=== PATIENT | male | born 1930 ===

== ENCOUNTER 2019-08-25 18:06 | Emergency (ER) | payer MEDICARE, OTHER ==
[2019-08-25] MEDS ORDERED: LIDOCAINE UROJECT 10 ML APPL MM ONE (18:26)
--- NOTE | 2019-08-25 18:52 | Emergency Department Record ---
History of Present Illness - General Chief complaint: Male Urogenital Problem Stated complaint: NEEDS CATH REPLACED Time Seen by Provider: 08/25/19 18:34 Source: Patient, Family Mode of Arrival: Wheelchair Limitations: No limitations - History of Present Illness Initial comments: pt had a herrera placed 2 days ago at [facility] for urinary retention. today it fell out while he was in the shower. he has an appt with dr parisi tomorrow Complaint: Other -: Hour(s) Indwelling catheter Reports: Urinary retention - Related Data Home Medications Medication Instructions Recorded Confirmed Last Taken Allopurinol 100 mg PO DAILY 08/25/19 08/25/19 Unknown Aspirin Chewable 81 mg PO DAILY 08/25/19 08/25/19 Unknown Carbidopa/Levodopa [Carbidopa-Levo 1 each PO ASDIR 08/25/19 08/25/19 Unknown 25-250 mg Odt] Carbidopa/Levodopa/Entacapone 1 each PO ASDIR 08/25/19 08/25/19 Unknown [Jkykuocpp-Ktxcobul-Nfbp 200 mg] Cyanocobalamin (Vitamin B-12) 5,000 mcg PO DAILY 08/25/19 08/25/19 Unknown [B-12 Dual Spectrum] Diclofenac Sodium/Misoprostol 1 tab PO DAILY 08/25/19 08/25/19 Unknown [Diclofenac-Misoprost 75-200 Tb] Latanoprost/Pf [Latanoprost 0.005% 7.5 ml OP QHS 08/25/19 08/25/19 Unknown Eye Drop] Omeprazole [Prilosec] 20 mg PO DAILY 08/25/19 08/25/19 Unknown Allergies Allergy/AdvReac Type Severity Reaction Status Date / Time No Known Drug Allergies Allergy Verified 08/25/19 18:15 Travel Screening - Travel/Exposure Within Last 30 Days Have you traveled within the last 30 days?: No Review of Systems Reviewed: No additional complaints except as noted below Constitutional: Reports: As per HPI. Denies: Chills, Fever, Malaise, Night sweats, Weakness, Weight change Eyes: Reports: As per HPI. Denies: Eye discharge, Eye pain, Photophobia, Vision change ENT: Reports: As per HPI. Denies: Congestion, Dental pain, Ear pain, Epistaxis, Hearing loss, Throat pain Respiratory: Reports: As per HPI. Denies: Cough, Dyspnea, Hemoptysis, Stridor, Wheezes Cardiovascular: Reports: As per HPI. Denies: Arrhythmia, Chest pain, Dyspnea on exertion, Edema, Murmurs, Orthopnea, Palpitations, Paroxysmal nocturnal dyspnea, Rheumatic Fever, Syncope Endocrine: Reports: As per HPI. Denies: Fatigue, Heat or cold intolerance, Polydipsia, Polyuria Gastrointestinal: Reports: As per HPI. Denies: Abdominal pain, Constipation, Diarrhea, Hematemesis, Hematochezia, Melena, Nausea, Vomiting Genitourinary: Reports: As per HPI, Retention. Denies: Dysuria, Frequency, Hematuria, Incontinence, Testicular pain, Testicular mass, Urgency Musculoskeletal: Reports: As per HPI. Denies: Arthralgia, Back pain, Gout, Joint swelling, Myalgia, Neck pain Skin: Reports: As per HPI. Denies: Bruising, Change in color, Change in hair/nails, Lesions, Pruritus, Rash Neurological: Reports: As per HPI. Denies: Abnormal gait, Confusion, Headache, Numbness, Paresthesias, Seizure, Tingling, Tremors, Vertigo, Weakness Psychiatric: Reports: As per HPI. Denies: Anxiety, Auditory hallucinations, Depression, Homicidal thoughts, Suicidal thoughts, Visual hallucinations Hematological/Lymphatic: Reports: As per HPI. Denies: Anemia, Blood Clots, Easy bleeding, Easy bruising, Swollen glands Past Medical History - SOCIAL HISTORY Smoking Status: Never smoker Alcohol Use: None Drug Use: None - RESPIRATORY Hx Respiratory Disorders: No - CARDIOVASCULAR Hx Cardio Disorders: Yes Comment:: loop placed - NEURO Hx Neuro Disorders: Yes Hx Parkinson's Disease: Yes - GI Hx GI Disorders: Yes Hx Reflux: Yes - Hx Genitourinary Disorders: Yes Hx Bladder Problem: Yes - ENDOCRINE Hx Endocrine Disorders: No - MUSCULOSKELETAL Hx Musculoskeletal Disorders: No - PSYCH Hx Psych Problems: No - HEMATOLOGY/ONCOLOGY Hx Hematology/Oncology Disorders: No Family Medical History Any Significant Family History?: No Physical Exam - General General Appearance: Alert, Oriented x3, Cooperative, Mild distress - Head Head exam: Normal inspection - Eye Eye exam: Normal appearance, PERRL, EOMI Pupils: Normal accommodation - ENT ENT exam: Normal exam, Mucous membranes moist, Normal external ear exam, Normal orophraynx Ear exam: Normal external inspection. negative: External canal tenderness Nasal Exam: Normal inspection. negative: Discharge, Sinus tenderness Mouth exam: Normal external inspection, Tongue normal Teeth exam: Normal inspection. negative: Dental caries Throat exam: Normal inspection. negative: Tonsillar erythema, Tonsillar exudate - Neck Neck exam: Normal inspection, Full ROM. negative: Tenderness - Respiratory Respiratory exam: Normal lung sounds bilaterally. negative: Respiratory distress - Cardiovascular Cardiovascular Exam: Regular rate, Normal rhythm, Normal heart sounds - GI/Abdominal GI/Abdominal exam: Soft, Normal bowel sounds. negative: Tenderness - Rectal Rectal exam: Deferred - exam: Deferred - Extremities Extremities exam: Normal inspection, Full ROM, Normal capillary refill. negative: Tenderness - Back Back exam: Reports: Normal inspection, Full ROM. Denies: Muscle spasm, Rash noted, Tenderness - Neurological Neurological exam: Alert, CN II-XII intact, Normal gait, Oriented X3 - Psychiatric Psychiatric exam: Normal affect, Normal mood - Skin Skin exam: Dry, Intact, Normal color, Warm Course Vital Signs 08/25/19 18:15 Pulse Rate 67 Respiratory 18 Rate Blood Pressure 199/122 Pulse Ox 100 - Reevaluation(s) Reevaluation #1: 08/25/19 19:16 pt feels better Reevaluation #2: 08/25/19 19:24 pt states he was recently taken off bp meds because it was running to low. he states it is high now because he is 'hyped up'. hes been told to recheck tomorrow Disposition Disposition: Discharge Clinical Impression: Encounter for Herrera catheter replacement Disposition: Home, Self-Care Condition: (1) Good Instructions: Herrera Catheter Placement and Care (ED) Additional Instructions: follow up with dr parisi tomorrow. return sooner if worse Forms: Patient Portal Access Quality - Quality Measures Quality Measures: N/A - Blood Pressure Screening Does Patient Have Any of the Following: No Blood Pressure Classification: Hypertensive Reading Systolic Measurement: 199 Diastolic Measurement: 122 Screening for High Blood Pressure: < First Hypertensive BP, F/U Documented > [[id number]] First Hypertensive Follow-up Interventions: Follow-up with rescreen GT 1 day and LT 4 weeks.
== END 2019-08-25 19:32 | disposition home or self-care (01) ==
LOC: ER 18:06
DX: T83.098A Other mechanical complication of other urinary catheter, initial encounter (principal); Y73.8 Miscellaneous gastroenterology and urology devices associated with adverse incidents, not elsewhere classified; R33.9 Retention of urine, unspecified; Y92.009 Unspecified place in unspecified non-institutional (private) residence as the place of occurrence of the external cause; Y93.E1 Activity, personal bathing and showering
CPT/HCPCS: 99283